=== PATIENT | male | born 1985 | race Caucasian/White ===

== ENCOUNTER 2020-10-16 17:35 | Emergency (ER) | payer BC ==
[~2020-10-16] VITALS: Ht 182.9 cm; Wt 97.5 kg
[2020-10-16 18:59] LABS: BASOPHILS # (AUTO) 0.1 10^3/uL (0.0-0.1); BASOPHILS % (AUTO) 1 % (0-10); EOSINOPHILS # (AUTO) 0.4 10^3/uL (0.0-0.3); EOSINOPHILS % (AUTO) 3 % (0-10); HEMATOCRIT 48 % (40-54); HEMOGLOBIN 16.1 g/dL (13.3-17.7); LYMPHOCYTES # (AUTO) 2.2 10^3/uL (1.0-4.0); LYMPHOCYTES % (AUTO) 17 % (12-44); MEAN CORPUSCULAR HEMOGLOBIN 29 pg (25-34); MEAN CORPUSCULAR HGB CONC 33 g/dL (32-36); MEAN CORPUSCULAR VOLUME 86 fL (80-99); MEAN PLATELET VOLUME 9.3 fL (9.0-12.2); MONOCYTES # (AUTO) 0.9 10^3/uL (0.0-1.0); MONOCYTES % (AUTO) 7 % (0-12); NEUTROPHILS # (AUTO) 9.2 10^3/uL (1.8-7.8); NEUTROPHILS % (AUTO) 72 % (42-75); PLATELET COUNT 316 10^3/uL (130-400); WHITE BLOOD COUNT 12.7 10^3/uL (4.3-11.0)
[2020-10-16 19:03] LABS: ALBUMIN 4.4 GM/DL (3.2-4.5); CHLORIDE 100 MMOL/L (98-107); POTASSIUM 3.8 MMOL/L (3.6-5.0); SODIUM 140 MMOL/L (135-145)
[2020-10-16 19:04] LABS: CALCIUM 9.3 MG/DL (8.5-10.1)
[2020-10-16 19:05] LABS: GLUCOSE 157 MG/DL (70-105); TOTAL PROTEIN 7.9 GM/DL (6.4-8.2)
[2020-10-16 19:06] LABS: CARBON DIOXIDE 26 MMOL/L (21-32)
[2020-10-16 19:07] LABS: BILIRUBIN,TOTAL 0.6 MG/DL (0.1-1.0)
[2020-10-16 19:09] LABS: ALKALINE PHOSPHATASE 74 U/L (40-136); CREATININE SERUM 0.97 MG/DL (0.60-1.30); GFR ESTIMATED > 60
[2020-10-16 19:10] LABS: BUN/CREATININE RATIO 5
[2020-10-16 19:12] LABS: ALANINE AMINOTRANSFERASE 46 U/L (0-55); CREATINE KINASE 78 U/L (30-200); MAGNESIUM 2.2 MG/DL (1.6-2.4)
[2020-10-16 19:19] LABS: CREATINE KINASE MB 0.9 NG/ML (<6.6)
--- NOTE | 2020-10-16 19:34 | Diagnostic Imaging Report ---
EXAMINATION: Chest 1 view HISTORY: Dyspnea COMPARISON: None available. FINDINGS: Heart size and pulmonary vasculature are normal. The lungs are clear without consolidation, pleural effusion, or pneumothorax. The osseous structures are intact. IMPRESSION: 1. No acute radiographic abnormality in the chest. Dictated by: Dictated on workstation # [id number]
--- NOTE | 2020-10-16 19:37 | ED General ---
General Chief Complaint: Cough/Cold/Flu Symptoms Stated Complaint: SOA / DIZZY / HEADACHE / BODY ACHES Source of Information: Patient History of Present Illness Date Seen by Provider: Oct 16, 2020 Time Seen by Provider: 18:52 Initial Comments PT ARRIVES VIA POV FROM HOME STATES HE HAS BEEN ILL SINCE Wednesday10/13/20 C/O PRODUCTIVE COUGH WITH GREEN SPUTUM C/O MILD SHORTNESS OF BREATH C/O MUCH FATIGUE C/O HEADACHE C/O BAD BODY ACHES C/O DIZZINESS C/O NAUSEA, NO VOMITING. NO DIARRHEA C/O NASAL CONGESTION AND DRAINAGE NO KNOWN FEVER, BUT HAS NOT CHECKED TEMP NO LOSS OF TASTE OR SMELL HAS HAD MILD SORE THROAT C/O DECREASED APPETITE, BUT HAS CONTINUED TO EAT AND DRINK--ATE JUST PRIOR TO ARRIVAL VOIDING A NORMAL AMOUNT HAS NOT TAKEN ANYTHING FOR SYMPTOMS HAS NOT SOUGHT CARE UNTIL TODAY NO KNOWN SICK CONTACTS HAS NOT BEEN VACCINATED FOR FLU OR COVID-19 NO CHRONIC ILLNESSES PCP: NONE Allergies and Home Medications Allergies Coded Allergies: No Known Drug Allergies (Unverified , 10/16/20) Home Medications Albuterol Sulfate 1 Puff Puff, 2 PUFF IH Q4H 1 PUFF = 90 MCG Prescribed by: PABLO HARPER on 10/16/202028 Benzonatate 100 Mg Capsule, 200 MG PO TID Prescribed by: PABLO HARPER on 10/16/201939 Dexamethasone 6 Mg Tablet, 6 MG PO DAILY Prescribed by: PABLO HARPER on 10/16/201939 Patient Home Medication List Home Medication List Reviewed: Yes Review of Systems Review of Systems Constitutional: see HPI, dizziness, malaise, weakness EENTM: see HPI, nose congestion, throat pain Respiratory: see HPI, cough, short of breath Cardiovascular: no symptoms reported; No chest pain Gastrointestinal: see HPI; No abdominal pain, No constipation; loss of appetite, nausea; No vomiting Genitourinary: no symptoms reported Musculoskeletal: see HPI Skin: no symptoms reported; No rash Psychiatric/Neurological: See HPI, Headache Hematologic/Lymphatic: No Symptoms Reported Immunological/Allergic: no symptoms reported Past Sklzy[place]-Onlpap-Urwoex Hx Patient Social History Alcohol Use: Past History Drug of Choice: DENIES Smoking Status: Former Smoker Past Medical History Surgeries: No Respiratory: No Cardiac: No Neurological: No Genitourinary: No Gastrointestinal: No Musculoskeletal: No Endocrine: No HEENT: No Cancer: No Psychosocial: No Integumentary: No Blood Disorders: No Physical Exam Vital Signs Vital Signs - First Documented Capillary Refill : Height, Weight, BMI Height: '" Weight: lbs. oz. kg; BMI Method: General Appearance: No Apparent Distress, WD/WN, Other (DOES NOT APPEAR ILL, SOMEWHAT FLAT AFFECT. NO COUGH OR DYSPNEA NOTED. ) HEENT: PERRL/EOMI, TMs Normal, Normal ENT Inspection, Pharynx Normal Neck: Full Range of Motion, Normal Inspection, Non Tender, Supple Respiratory: Normal Breath Sounds, No Accessory Muscle Use, No Respiratory Distress Cardiovascular: Regular Rate, Rhythm, No Edema, No JVD, No Murmur, Normal Peripheral Pulses Gastrointestinal: Non Tender, Soft Extremity: Normal Inspection Neurologic/Psychiatric: Alert, Oriented x3, No Motor/Sensory Deficits, [employer] defence guard II- XII Norm as Tested Skin: Normal Color, Warm/Dry; No Rash Progress/Results/Core Measures Suspected Sepsis SIRS Temperature: Pulse: Respiratory Rate: Laboratory Tests 10/16/20 18:25: White Blood Count 12.7H Blood Pressure / Mean: Laboratory Tests 10/16/20 18:25: Creatinine 0.97, Platelet Count 316, Total Bilirubin 0.6 Results/Orders Lab Results Laboratory Tests Test 10/16/20 18:25 Range/Units White Blood Count 12.7 H 4.3-11.0 10^3/uL Red Blood Count 5.62 H 4.30-5.52 10^6/uL Hemoglobin 16.1 13.3-17.7 g/dL Hematocrit 48 40-54 % Mean Corpuscular Volume 86 80-99 fL Mean Corpuscular Hemoglobin 29 25-34 pg Mean Corpuscular Hemoglobin Concent 33 32-36 g/dL Red Cell Distribution Width 12.8 10.0-14.5 % Platelet Count 316 130-400 10^3/uL Mean Platelet Volume 9.3 9.0-12.2 fL Immature Granulocyte % (Auto) 0 % Neutrophils (%) (Auto) 72 42-75 % Lymphocytes (%) (Auto) 17 12-44 % Monocytes (%) (Auto) 7 0-12 % Eosinophils (%) (Auto) 3 0-10 % Basophils (%) (Auto) 1 0-10 % Neutrophils # (Auto) 9.2 H 1.8-7.8 10^3/uL Lymphocytes # (Auto) 2.2 1.0-4.0 10^3/uL Monocytes # (Auto) 0.9 0.0-1.0 10^3/uL Eosinophils # (Auto) 0.4 H 0.0-0.3 10^3/uL Basophils # (Auto) 0.1 0.0-0.1 10^3/uL Immature Granulocyte # (Auto) 0.0 0.0-0.1 10^3/uL Erythrocyte Sedimentation Rate 8 0-15 MM/HR Sodium Level 140 135-145 MMOL/L Potassium Level 3.8 3.6-5.0 MMOL/L Chloride Level 100 98-107 MMOL/L Carbon Dioxide Level 26 21-32 MMOL/L Anion Gap 14 5-14 MMOL/L Blood Urea Nitrogen 5 L 7-18 MG/DL Creatinine 0.97 0.60-1.30 MG/DL Estimat Glomerular Filtration Rate > 60 BUN/Creatinine Ratio 5 Glucose Level 157 H 70-105 MG/DL Calcium Level 9.3 8.5-10.1 MG/DL Corrected Calcium 9.0 8.5-10.1 MG/DL Magnesium Level 2.2 1.6-2.4 MG/DL Total Bilirubin 0.6 0.1-1.0 MG/DL Aspartate Amino Transf (AST/SGOT) 23 5-34 U/L Alanine Aminotransferase (ALT/SGPT) 46 0-55 U/L Alkaline Phosphatase 74 40-136 U/L Lactate Dehydrogenase 212 125-220 U/L Total Creatine Kinase 78 30-200 U/L Creatine Kinase MB 0.9 <6.6 NG/ML Myoglobin 31.8 10.0-92.0 NG/ML Troponin I < 0.028 <0.028 NG/ML C-Reactive Protein High Sensitivity 0.94 H 0.00-0.50 MG/DL B-Type Natriuretic Peptide < 10.0 <100.0 PG/ML Total Protein 7.9 6.4-8.2 GM/DL Albumin 4.4 3.2-4.5 GM/DL Procalcitonin 0.04 <0.10 NG/ML Influenza Type A (RT-PCR) Not Detected Not Detecte Influenza Type B (RT-PCR) Not Detected Not Detecte SARS-CoV-2 RNA (RT-PCR) Not Detected Not Detecte My PABLO Wang K DO Ed Iv/Invasive Line Start (10/16/20 18:50) Ekg Tracing (10/16/20 18:50) O2 (10/16/20 18:50) Monitor-Rhythm Ecg Trace Only (10/16/20 18:50) BNP (10/16/20 18:50) Cbc With Automated Diff (10/16/20 18:50) Comprehensive Metabolic Panel (10/16/20 18:50) Creatine Kinase (10/16/20 18:50) Creatine Kinase Mb (10/16/20 18:50) Hs C Reactive Protein (10/16/20 18:50) Magnesium (10/16/20 18:50) Influenza A And B By Pcr (10/16/20 18:50) Erythrocyte Sedimentation Rate (10/16/20 18:50) Myoglobin Serum (10/16/20 18:50) Troponin I (10/16/20 18:50) Procalcitonin (Pct) (10/16/20 18:50) LDH (10/16/20 18:50) Chest 1 View, Ap/Pa Only (10/16/20 18:50) Covid 19 Inhouse Test (10/16/20 18:50) Vital Signs/I&O 10/16/20 10/16/20 10/16/20 18:15 18:15 20:44 Temp 37.0 Pulse 90 74 Resp 16 16 B/P (MAP) 135/88 (104) 136/95 Pulse Ox 97 96 O2 Delivery Room Air Room Air Room Air Capillary Refill : Progress Note : Progress Note PLACED IN ISOLATION ROOM PPE WORN AT ALL TIMES COVID-19 TESTING PERFORMED NO DYSPNEA NO COUGH NO HYPOXIA NO FEVER VITALS NORMAL REQUESTS ALBUTEROL INHALER ECG Initial ECG Impression Date: Oct 16, 2020 Initial ECG Impression Time: 19:19 Initial ECG Rate: 77 Initial ECG Rhythm: Normal Sinus Diagnostic Imaging Comments CXR--PER RADIOLOGIST REPORT AT 1940 FINDINGS: Heart size and pulmonary vasculature are normal. The lungs are clear without consolidation, pleural effusion, or pneumothorax. The osseous structures are intact. IMPRESSION: 1. No acute radiographic abnormality in the chest. Reviewed: Reviewed by Me Departure Impression Primary Impression: Person under investigation for COVID-19 Additional Impression: Upper respiratory infection Disposition: 01 HOME, SELF-CARE Condition: Stable Departure-Patient Inst. Decision time for Depature: 20:00 Referrals: NO,LOCAL PHYSICIAN (PCP/Family) Primary Care Physician Patient Instructions: COVID-19 Overview, Preventing the Spread of an Infectious Disease, Cough, Runny Nose, and the Common Cold (DC) Add. Discharge Instructions: LOTS OF CLEAR LIQUIDS TYLENOL 1 GRAM/ MOTRIN 800 MG 4 TIMES A DAY FOR PAIN OR FEVER FOLLOW UP WITH DRRoyer OF [facility] IN 2-3 DAYS TO BE RE-TESTED FOR COVID-19. QUARANTINE UNTIL YOU ARE RETESTED AND CLEARED YOU MAY GO TO [facility] THRU TESTING OR [facility] FOR TESTING. All discharge instructions reviewed with patient and/or family. Voiced understanding. Scripts Albuterol Sulfate (PROAIR HFA) 1 Puff Puff 2 PUFF IH Q4H, #1 EA 1 PUFF = 90 MCG Prov: PABLO HARPER DO 10/16/20 Dexamethasone (Decadron) 6 Mg Tablet 6 MG PO DAILY, #10 TAB Prov: PABLO HARPER DO 10/16/20 Benzonatate (TESSALON PERLES) 100 Mg Capsule 200 MG PO TID, #30 CAP Prov: PABLO HARPER DO 10/16/20 Work/School Note: Work Release Form Date Seen in the Emergency Department: Oct 16, 2020 Return to Work: Oct 16, 2020 Restrictions: Need Release from Doctor PABLO HARPER DO Oct 16, 2020 19:37
[2020-10-16] MEDS ORDERED: BENZ100C18 PO (19:40)
[2020-10-16] MEDS ORDERED: DEXA6TAB6 PO (19:40)
[2020-10-16 19:44] LABS: ERYTHROCYTE SEDIMENTATION RATE 8 MM/HR (0-15)
[2020-10-16] MEDS ORDERED: RT-ALBUINH IH (20:29)
[2020-10-16 20:44] VITALS: BP 136/95
== END 2020-10-16 20:44 | disposition home or self-care (01) ==
LOC: ER 17:39
DX: J06.9 Acute upper respiratory infection, unspecified (principal); Z20.822 Contact with and (suspected) exposure to COVID-19; Z87.891 Personal history of nicotine dependence
CPT/HCPCS: 36415; 71045; 80053; 82550; 82553; 83615; 83735; 83874; 83880; 84145; 84484; 85025; 85652; 86141; 87636; 93005; 93041